=== PATIENT | female | born 1990 ===

== ENCOUNTER 2024-08-19 15:21 | Outpatient (CLI) | payer BC, SELFPAY ==
--- NOTE | ~2024-08-19 | US_ITS ---
EXAMINATION: US OB <= 14 weeks fetus DATE: 08/21/2024 22:13 TREATING ENGINEER INDICATION: Spotting. COMPARISON: None TECHNIQUE: Real-time transabdominal obstetric ultrasound. FINDINGS: 3 para 0 Last menstrual period is given as 06/26/2024 Estimated date of delivery by last menstrual period is 04/02/2025 The uterus measures 8.3 x 5.2 x 5.9 cm. A gestational sac is identified within the fundus of the uterus. A pole is identified, with a crown-rump length that measures 15.8mm, corresponding to an approx imate gestational age of 8 weeks and 0 days. cardiac activity is identified at a rate of 183 bpm. Despite prolonged interrogation, neither ovary was visualized Estimated date of delivery by ultrasound is 03/31/2025 IMPRESSION: Single intrauterine gestation with an approximate gestational age of 8 weeks and 0 days, with c ardiac activity identified. Reviewed, dictated and finalized at location A. TING ENGINEER IMPRESSION: Single intrauterine gestation with an approximate gestational age of 8 weeks an d 0 days, with cardiac activity identified.
== END 2024-08-19 15:22 | disposition home or self-care (01) ==
PROVIDERS: PCP Obstetrics & Gynecology Gynecology; Visit Provider Obstetrics & Gynecology Gynecology
DX: O36.80X0 Pregnancy with inconclusive fetal viability, not applicable or unspecified (principal); Z3A.08 8 weeks gestation of pregnancy
CPT/HCPCS: 76801

== ENCOUNTER 2025-01-20 11:01 | Outpatient (RCR) | payer BC, SELFPAY ==
--- OUTSIDE RECORDS SUMMARY | 2025-01-20 11:08 | XMS_ITS | Clinical Summary ---
Author Organization ID [facility] Address [address] [place] [id number] Phone Care Team Providers Care Customer Service Attendant Name Role Phone Unavailable Primary Care Provider Unavailabl e Social History Tobacco Use Types Packs/Day Years Used Date Smoking Tobacco: Never Assessed Comments Unknown Sex and Gender Information Value Date Recorded Sex Assigned at Not on file Legal Sex Female 9:04 AM [employer]ER Gender Identity Not on file Sexual Orientation Not on file Plan of Treatment Health Maintenance Due Date Last Done Comments Hepatitis C Virus (HCV) Screening 1988 TdaP Immunization 1988 Hepatitis B Immunization (3 of 3 - 3-dose series) 06/27/1998 04/11/1998, 03/07/1998 Pap Smear 01/26/2009 Cervical Cancer Screening (CCS) 01/26/2018 HPV/Cotest 01/26/2018 Influenza Immunization (#1) 2024 SARS-COV-2 Immunization ( season) 2024 10/18/2020, 09/27/2020 Respiratory Syncytial Virus (RSV) Immunization (Adult) (1 - 1-dose 75+ series) 01/26/2063 DTaP/Tdap/Td Immunization Discontinued 1991, 07/28/1990, 1988, Additional history exists Meningococcal Immunization (ACWY) Aged Out 04/01/2006 No longer eligible based on patient's age to complete this topic Pneumococcal Immunization Combined Aged Out No longer eligible based on patient's age to complete this topic Rotavirus Immunization Aged Out No lo nger eligible based on patient's age to complete this topic
--- OUTSIDE RECORDS SUMMARY | 2025-01-20 11:08 | XMS_ITS | Data Portability ---
[facility] [address] [place] [address] Assessment No assessment recorded. Plan of Treatment Reminders Order Date Submit Date Provider Last Modified By Organization Details Last Modified Time Details Appointments None recorded. Lab PPD (purified protein derivative) , skin test 2016 017 STEPHANIE In-Office Order, Internal Use Only DO Not Attach Compendium DO Not Attach Compendium, Do Not Delete/merge, [address] 17:52:29 Referral None recorded. Procedures None recorded. Surgeries None recorded. Imaging None recorded. Medication Orders Tubersol 5 tub. unit/0.1 mL intradermal injection solution 2016 017 [email or web address] [id number], [address] [place], [address], 7 16:55:29 Patient TargetsNo targets recorded. Patient InstructionsNo instructions recorded. Reason for Referral None Reported. Results Created Date Observation Date Name Description Value Unit Range Abnormal Flag Note LastModifiedBy Organization Detail LastModifiedTime 11/16/19 22 xr knee+ sunri se lt 3V [facility] [address] [place] [address] EXAMIN ATION: XR KNEE+S UNRISE LT 3V ACCESS ION: [id number] INDICA TIONS: ACUTE KNEE PAIN S/P FALL WITH POPPIN G SENSAT ION COMPAR CHARLEE: 2020 FINDIN GS: Fronta l and latera l radiog raphs with dedica zaheer sunris e view of the left knee demons trate gross anatom ic alignm ent withou t displa kiran fractu re, region of perios teal elevat ion, or aggres sive osseou s lesion . Joint spaces are preser lincoln and the subcho ndral surfac es are smooth . Soft tissue fat planes are mainta ined withou t locali zed swelli ng, joint effusi on, or suspic ious calcif icatio n. IMPRES HARSHA: No acute or locali zing abnorm ality. Ordere d By: RJ ALMEIDA Electr onical ly Signed By: Siddhartha Fernandez on 11/16/19 5:09 PM Interp reted By: Siddhartha Fernandez, 11/16/19 5:[address], [place], [address], 11/17/2021 09:56:21 11/16/19 xr hip lt 2V [facility] [place] [address] EXAMIN ATION: XR HIP LT 2V HISTOR Y: Pain after fall DATE: 11/16/19 4:53 PM COMPAR CHARLEE: None TECHNI QUE: AP and latera l views of the left hip. 2 images . FINDIN GS: No acute fractu re identi fied. No disloc ation. Hip joint unrema rkable . No destru ctive bone lesion . IMPRES HARSHA: No acute osseou s abnorm ality. Referr ed By: Electr onical ly Signed By: Shawn Bustamante MD on 11/16/19 5:10 PM Interp reted By: Shawn Bustamante MD, 11/16/19 5:09 PM [facility] [address] [facility], [place], [address], 11/17/2021 09:56:21 Result Notes None recorded. Problems No Known Problems Medical Equipment None Reported. Allergies No known drug allergies Medications Name Sig Start Date Stop Date Status Note LastModified by Organization Details LastModified Time Tubersol 5 tub. unit/0.1 mL intradermal injection solution Inject 0.1 mL by intradermal route. 2016 active Not Available Not Available Not Avai lable Vitals Date Recorded Body height Body mass index (BMI) Body weight Oxygen saturation Oxygen saturation in Arterial blood by Pulse oximetry Heart rate Body temperature Systolic blood pressure Diastolic blood pressure Provider Name and Address Organization Details Last Updated DateTime 7 158.75 cm 20.2 kg/m2 09002.3 5 g 92 % 92 % 88 /min 98.3 [degF] 96 mm[Hg] 50 mm[Hg] Eduar Gant MA [facility] 7 16:19:57 Social History Question Answer Notes LastModified by Organizat ion Details LastModified Time Tobacco Smoking Status Never Smoker Mimi Gant MA null, [facility] 04/08/2017 16:17:05 What Was The Date Of Your Most Recent Tobacco Screening? 04/08/2017 Information n ot available 03/10/2019 Sex: Unknown Functional Status None recorded. Mental Status None recorded. Family History Nothing Reported. Medical History No medical history recorded. Gynecological HistoryNo gynecological history recorded. 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 no restrictio ns indicated. ppd per ma per vo Health Concerns Section Related Observation LastModified by Organization Detai ls LastModified Time None Recorded Concern Status LastModified by Organization Details LastModified Time None Recorded Advance Directives Directive None Recorded Payers Encounter Date Sequence Insurance Name Policy Number Policy Yu Covered Member ID Yu Member ID Guarantor Name 04/08/2017 1 [employer] (POS) [id number] Nella Miguel [id number] Nella Miguel Notes Date Note Type Note Provider Name and Address Organization Details Recorded Time 04/08/2017 text/html Pt presents to clinic requesting employment physical. She denies nausea, vomiting, fever, chills, diarrhea, constipation and dysuria. Bridgett Garcia, FLIGHT OPERATIONS SPECIALIST- Attn: [address] [place], [address], [facility] 04/08/2017 16:49:57 OBGyn Episode No OBEpisode recorded.
[2025-01-22] MEDS: RHO(D) IMMUNE GLOBULIN 300 MCG/2 ML SYRINGE IM (17:28)
== END 2025-04-20 23:59 | disposition home or self-care (01) ==
LOC: ANHLAB 11:01
PROVIDERS: PCP Obstetrics & Gynecology Gynecology; Visit Provider Nurse Practitioner
DX: Z29.13 Encounter for prophylactic Rho(D) immune globulin (principal)
CPT/HCPCS: 36415; 85461; 86850; 86900; 86901; 90384; 96372; J2790